=== PATIENT | female | born 1985 | race African-American/Black ===

== ENCOUNTER 2023-03-10 14:11 | Emergency (ER) | payer OTHER ==
[2023-03-10 14:29] VITALS: BP 116/71; BMI 28.3
[2023-03-10] MEDS ORDERED: ACETAMINOPHEN 500 MG TABLET (FP) PO ONE (15:07)
[2023-03-10] MEDS ORDERED: ACETAMINOPHEN 500 MG TABLET (FP) ONE (15:07)
[2023-03-10 15:51] VITALS: PULSE 88; RESP 16; TEMP 98.1
== END 2023-03-10 16:15 | disposition home or self-care (01) ==
LOC: JERFT 14:11
DX: R09.81 Nasal congestion (principal); R09.89 Other specified symptoms and signs involving the circulatory and respiratory systems; R50.9 Fever, unspecified; U07.1 COVID-19
CPT/HCPCS: 0241U-QW; 99283-25